=== PATIENT | male | born 1985 | race Two or more races ===

== ENCOUNTER 2024-09-23 16:25 | Inpatient (IN) | payer MEDICAID, OTHER ==
[~2024-09-23] VITALS: Ht 162.6 cm; Wt 81.2 kg
--- NOTE | 2024-09-23 16:46 | ED.PDOC ---
GI ASSESSMENT HPI Comments 38 y.o male presents to the ED for a chief complaint of abdominal pain associated with nausea and vomiting that started this morning. Patient describes pain as sharp, constant and rating a 10/10 on the pain scale. Patient does admit to heavily using alcohol yesterday. He denies any diarrhea, fever, chills, bleeding, dysuria. Chief Complaint: Abdominal Pain Time Seen by MD: 16:36 Reviewed Notes: Nurses Notes, Medications, Allergies Allergies: Coded Allergies: NO KNOWN ALLERGIES (Unverified , 09/23/24) Information Source: Patient Mode of Arrival: Ambulatory Timing: Hours Duration: Since onset Quality: Sharp Vomitus: Hard Stool: Normal Severity: Moderate Recent: Ingestion of ETOH Recent Hx of: None Pain Location: Diffuse Modifying Factors: Nothing Associated sign and symptoms: Nausea, Vomiting, Abdominal Pain Past Medical History PAST MEDICAL HISTORY: DM Surgical History (Other): left hand Family History Family History: Reviewed,noncontributory to illness Social History Smoker: Non-Smoker Alcohol: Occasionally Drugs: Denies Drug Use Lives In: Home Constitutional: denies: chills, diaphoresis, fatigue, fever, malaise, sweats, weakness, others EENTM: denies: blurred vision, double vision, ear bleeding, ear discharge, ear drainage, ear pain, ear ringing, eye pain, eye redness, hearing loss, mouth pain, mouth swelling, nasal discharge, nose bleeding, nose congestion, nose pain, photophobia, tearing, throat pain, throat swelling, voice changes, others Respiratory: denies: cough, hemoptysis, orthopnea, SOB at rest, shortness of breath, SOB with excertion, stridor, wheezing, others Cardiovascular: denies: chest pain, dizzy spells, diaphoresis, Dyspnea on exertion, edema, irregular heart beat, left arm pain, lightheadedness, palpitations, PND, syncope, others Gastrointestinal: reports: abdominal pain, nausea, vomiting; denies: abdomen distended, blood streaked bowels, constipated, diarrhea, dysphagia, difficulty swallowing, hematemesis, melena, poor appetite, poor fluid intake, rectal bleeding, rectal pain, others Genitourinary: denies: burning, dysuria, flank pain, frequency, hematuria, incontinence, penile discharge, penile sore, pain, testicle pain, testicle swelling, urgency, others Neurological: denies: dizziness, fainting, headache, left sided numbness, left sided weakness, numbness, paresthesia, pre-existing deficit, right sided numbne ss, right sided weakness, seizure, speech problems, tingling, tremors, weakness, others Musculoskeletal: denies: back pain, gout, joint pain, joint swelling, muscle pain, muscle stiffness, neck pain, others Integumetry: denies: bruises, change in color, change in hair/nails, dryness, laceration, lesions, lumps, rash, wounds, others Allergic/Immunocompromised: denies: Difficulty Healing, Frequent Infections, Hives, Itching, others Hematologic/Lymphatic: denies: anemia, blood clots, easy bleeding, easy bruising, swollen glands, others Endocrine: denies: excessive hunger, excessive sweating, excessive thirst, excessive urination, flushing, intolerance to cold, intolerance to heat, unexplained weight gain, unexplained weight loss, others Psychiatric: denies: anxiety, bipolar disorder, depression, hopeless, panic disorder, schizophrenia, sleepless, suicidal, others All Other Systems: Reviewed and Negative Physical Exam General Appearance: Moderate Distress HEENT: Normal ENT Inspection, Pharynx Normal, TMs Normal Neck: Full Range of Motion, Non-Tender, Normal, Normal Inspection Respiratory: Chest Non-Tender, Lungs Clear, No Accessory Muscle Use, No Respiratory Distress, Normal Breath Sounds Cardiovascular: No Edema, No JVD, No Murmur, No Gallop, Normal Peripheral Pulses, Regular Rate/Rhythm Breast Exam: Deferred Gastrointestinal: Diffuse, No Organomegaly, No Pulsatile Mass, Normal Bowel Sounds, Soft, Tenderness Genitalia: Deferred Pelvic: Deferred Rectal: Deferred Extremities: No calf tenderness, Normal capillary refill, Normal inspection, Normal range of motion, Non-tender, No pedal edema Musculoskeletal : Apperance: Normal Neurologic: Alert, value stream coach II-XII nml as Tested, No Motor Deficits, Normal Affect, Normal Mood, No Sensory Deficits Cerebellar Function: Normal Reflexes: Normal Skin: Dry, Normal Color, Warm Lymphatic: No Adenopathy Was a procedure done? Was a procedure done?: No GI differential Dx Differential Diagnosis: Esophagitis, Gastroenteritis, Inflammatory BD, Pancreatitis, Dehydration, Drug toxicity, Electrolyte Imbalance, Food Poisoning, Parasitic X-Ray, Labs, Meds, VS Vital Signs Date Time Temp Pulse Resp B/P (MAP) Pulse Ox O2 Delivery O2 Flow Rate FiO2 09/23/24 17:22 79 15 132/83 09/23/24 17:02 98.0 105 12 125/71 (89) 99 98.0 09/23/24 17:02 105 16 94 Room Air* 0 21 09/23/24 16:58 105 16 125/71 09/23/24 16:33 97.2 98 20 137/93 (108) 98 97.2 Lab Test 09/23/24 16:53 09/23/24 16:37 Range/Units White Blood Count 12.2 H 4.4-10.8 10^3/uL Red Blood Count 5.93 H 4.5-5.90 10^6/uL Hemoglobin 18.1 H 13.5-17.5 g/dL Hematocrit 51.3 41.0-53.0 % Mean Corpuscular Volume 86.4 80.0-100.0 fL Mean Corpuscular Hemoglobin 30.5 28.0-32.0 pg Mean Corpuscular Hemoglobin Concent 35.3 32.0-36.0 g/dL Red Cell Distribution Width 13.5 11.8-14.3 % Platelet Count 212 140-450 10^3/uL Mean Platelet Volume 9.2 6.9-10.8 fL Neutrophils (%) (Auto) 80.2 H 37.0-80.0 % Lymphocytes (%) (Auto) 12.5 10.0-50.0 % Monocytes (%) (Auto) 6.8 0.0-12.0 % Eosinophils (%) (Auto) 0.2 0.0-7.0 % Basophils (%) (Auto) 0.3 0.0-2.0 % Neutrophils # (Auto) 9.8 H 1.6-8.6 10 ^3/uL Lymphocytes # (Auto) 1.5 0.4-5.4 10 ^3/uL Monocytes # (Auto) 0.8 0-1.3 10 ^3/uL Eosinophils # (Auto) 0 0-0.8 10 ^3/uL Basophils # (Auto) 0 0-0.2 10 ^3/uL Nucleated Red Blood Cells 0.1 % Sodium Level 142 136-145 mmol/L Potassium Level 4.0 3.5-5.1 mmol/L Chloride Level 104 98-107 mmol/L Carbon Dioxide Level 27 20-31 mmol/L Anion Gap 11 5-15 Blood Urea Nitrogen 9 9-23 mg/dL Creatinine 1.00 0.700-1.30 mg/dL Glomerular Filtration Rate Calc 99 >90 mL/min BUN/Creatinine Ratio 9.0 L 10.0-20.0 Serum Glucose 197 H 74-106 mg/dL Calcium Level 10.2 8.7-10.4 mg/dL Total Bilirubin 0.7 0.2-1.0 mg/dL Aspartate Amino Transferase (AST) 22 13-40 U/L Alanine Aminotransferase (ALT) 35 7-40 U/L Alkaline Phosphatase 113 46-116 U/L Total Protein 8.8 H 5.7-8.2 g/dL Albumin 5.4 H 3.2-4.8 g/dL Lipase 29 12-53 U/L Plasma/Serum Blood Alcohol < 3.0 <10 mg/dL Urine Color Yellow Yellow Urine Clarity Clear Clear Urine pH 7.0 5.0-9.0 Urine Specific [place] 1.030 1.001-1.035 Urine Protein 2+ H Negative Urine Ketones Trace Negative Urine Blood Negative Negative /uL Urine Nitrite Negative Negative Urine Bilirubin Negative Negative Urine Urobilinogen 2 H Negative mg/dL Urine Leukocyte Esterase Negative Negative /uL Urine RBC 2 0 - 3 /hpf Urine Microscopic WBC 1 0-3 /HPF Urine Squamous Epithelial Cells None seen <5 /hpf Urine Bacteria None seen None Seen /hpf Urine Mucus Few None Seen Urine Glucose 2+ H Normal mg/dL Urine Opiates Screen Neg NEGATIVE Urine Fentanyl Screen Neg NEGATIVE Urine Barbiturates Screen Neg NEGATIVE Urine Phencyclidine Screen Neg NEGATIVE Urine Amphetamines Screen Neg NEGATIVE Urine Benzodiazepines Screen Neg NEGATIVE Urine Cocaine Screen Pos NEGATIVE Urine Cannabinoids Screen Pos NEGATIVE Current Medications Medications (Trade) Dose Ordered Sig/Ashely Route Start Time Stop Time Status Last Admin Ondansetron HCl (Zofran) 4 mg ONCE ONCE IV 09/23/24 16:45 09/23/24 16:46 DC 09/23/24 16:58 Sodium Chloride 1,000 ml @ 1,000 mls/hr Q1H ONCE IVB 09/23/24 16:45 09/23/24 17:44 DC 09/23/24 16:57 Morphine Sulfate 4 mg ONCE ONCE IV 09/23/24 16:45 09/23/24 16:46 DC 09/23/24 16:58 Procedure: CT CT AB PEL WO CON-NO ORAL OR IV 09/23/2024 05:06 PM IMPRESSION: 1. No acute intracranial abnormality. 2. Hepatic steatosis. 3. Subcentimeter hypodense lesions of the right kidney, too small to characterize in this unenhanced study. Recommend further evaluation by ultrasound nonemergent basis. The UDS is positive for cocaine and marijuana The urine is negative for any infection The patient was given morphine for the pain The patient was given 1 L bolus of normal saline At this time, the patient was given morphine for the pain The patient was given Zofran for the nausea The patient was still having persistent pain so the patient will be admitted Images Reviewed?: Images reviewed and evaluated by me Time of 1ST Reevaluation: 16:43 Reevaluation 1ST: Unchanged Patient Education/Counseling: Diagnosis, Treatment, Prognosis Family Education/Counseling: No Family Present Departure 1 Departure Time of Disposition: 19:01 Impression: Primary Impression: Intractable abdominal pain Additional Impression: Abdominal pain of unknown etiology Disposition: ADMITTED INPATIENT Admit to: Med Surg Condition: Fair Critical Care Note Critical Care Time?: No Stability Stability form required: Yes Unstable for transfer: ED Physician Assesment (Clinical assesment) I personally scribed for STEVE SINGH MD ([email or web address]) on 09/23/24 at 16:46. Electronically submitted by Shaila Mcmillan ([facility]). I personally scribed for STEVE SINGH MD ([email or web address]) on 09/23/24 at 18:42. Electronically submitted by Shaila Mcmillan ([facility]). STEVE SINGH MD Sep 23, 2024 16:46
[2024-09-23 16:53] LABS: Urine Bacteria None Seen /hpf (None Seen)
[2024-09-23] MEDS: SODIUM CHLORIDE 0.9% 1,000 ML IVB ONE (16:57)
[2024-09-23 16:58] LABS: Basophils # (auto) 0 10 ^3/uL (0-0.2); Eosinophils # (auto) 0 10 ^3/uL (0-0.8); Lymphocytes # (auto) 1.5 10 ^3/uL (0.4-5.4); Mean Corpuscular Volume 86.4 fL (80.0-100.0); Monocytes # (auto) 0.8 10 ^3/uL (0-1.3)
[2024-09-23] MEDS: ONDANSETRON HCL 4 MG/2 ML VIAL IV ONE (16:58)
[2024-09-23] MEDS: MORPHINE SULFATE 4 MG/ML SYR/VIAL IV ONE (16:58)
[2024-09-23 16:59] LABS: Urine Blood Negative /uL (Negative); Urine Clarity Clear (Clear); Urine Color Yellow (Yellow); Urine Mucus FEW (None Seen); Urine Protein, UAD 2+ (Negative); Urine Squamous Epithelial Cell None Seen /hpf (<5); Urine Urobilinogen 2 mg/dL (Negative); Urine WBC 1 /HPF (0-3)
[2024-09-23 17:00] LABS: Basophils % (auto) 0.3 % (0.0-2.0); Eosinophils % (auto) 0.2 % (0.0-7.0); Hematocrit 51.3 % (41.0-53.0); Hemoglobin 18.1 g/dL (13.5-17.5); Lymphocytes % (auto) 12.5 % (10.0-50.0); Mean Corpuscular Hemoglobin 30.5 pg (28.0-32.0); Mean Corpuscular Hgb Conc. 35.3 g/dL (32.0-36.0); Monocytes % (auto) 6.8 % (0.0-12.0); Neutrophils # (auto) 9.8 10 ^3/uL (1.6-8.6); Neutrophils % (auto) 80.2 % (37.0-80.0); Nucleated Red Blood Cells % 0.1 %; Platelet Count (auto) 212 10^3/uL (140-450); Red Blood Cells 5.93 10^6/uL (4.5-5.90); Red Cell Distribution Width 13.5 % (11.8-14.3); White Blood Cell 12.2 10^3/uL (4.4-10.8)
[2024-09-23 17:02] VITALS: PULSE 105; RESP 16; O2SAT 94
[2024-09-23 17:12] LABS: Cannabinoid Screen, Urine Pos (NEGATIVE)
[2024-09-23 17:14] LABS: Alanine Aminotransferase 35 U/L (7-40); Alkaline Phosphatase 113 U/L (46-116); Anion Gap 11 (5-15); Aspartate Aminotransferase 22 U/L (13-40); Calcium 10.2 mg/dL (8.7-10.4); Carbon Dioxide 27 mmol/L (20-31); Chloride 104 mmol/L (98-107); Sodium 142 mmol/L (136-145)
[2024-09-23 17:15] LABS: Bilirubin, Total 0.7 mg/dL (0.2-1.0)
[2024-09-23 17:18] LABS: Amphetamine Screen, Urine Neg (NEGATIVE); Barbiturate Scree,Urine Neg (NEGATIVE); Benzodiazephine Screen, Urine Neg (NEGATIVE); Cocaine Screen, Urine Pos (NEGATIVE); Opiate Scree,Urine Neg (NEGATIVE); Phencyclidine Screen, Urine Neg (NEGATIVE)
[2024-09-23 17:19] LABS: Albumin 5.4 g/dL (3.2-4.8); Blood Alcohol < 3.0 mg/dL (<10); Blood Urea Nitrogen 9 mg/dL (9-23); Glucose 197 mg/dL (74-106); Total Protein 8.8 g/dL (5.7-8.2)
[2024-09-23 17:26] LABS: Lipase 29 U/L (12-53)
--- NOTE | 2024-09-23 17:59 | DVH ---
Procedure: CT CT AB PEL WO CON-NO ORAL OR IV 09/23/2024 05:06 PM Indication: pain Comparison Study: None Technique: Axial images were obtained and reformatted in coronal and sagittal planes. All CT scans at this medical facility are performed using dose modulation techniques as appropriate to a performed e xam including the following: Automated exposure control was utilized; adjustment of the MA and/or KV according to patient size; and use of iterative reconstruction technique. CT Dose: CTDI volume is 9.3 6 mGy. Dose-length product is 501.4 mGy*cm FINDINGS: Lower Chest: Unremarkable. Hepatobiliary: Hepatic steatosis. Spleen: Unremarkable. Pancreas: Unremarkable. Adrenal Glands: Unremarkable. tract: The kidneys are normal in size bilaterally without hydronephrosis or nephrolithiasis. Subce ntimeter hypodense lesion noted in the upper pole, medial cortex of the right kidney, too small to ch aracterize in this unenhanced study but probably a cyst. A subcentimeter hypodense lesion noted in th e lateral cortex of the lower pole of the right kidney. The urinary bladder is unremarkable. GI tract: The stomach is grossly normal in appearance. No evidence of small bowel obstruction. The la rge bowel is unremarkable. The appendix is normal. Lymphatics: No mesenteric, retroperitoneal or periportal lymphadenopathy. Vasculature: The abdominal aorta is normal in caliber. Pelvic Organs: Unremarkable Bones/soft tissues: No acute abnormality. Other: None. IMPRESSION: 1. No acute intracranial abnormality. 2. Hepatic steatosis. 3. Subcentimeter hypodense lesions of the right kidney, too small to characterize in this unenhanced study. Recommend further evaluation by ultrasound nonemergent basis.
[2024-09-23] MEDS ORDERED: MORPHINE SULFATE INJ 2 MG/ml SYRG IV PRN (21:30)
[2024-09-23] MEDS ORDERED: NITROGLYCERIN 0.4 MG SL TAB SL PRN (21:30)
[2024-09-23 23:05] VITALS: PULSE 99; RESP 18; O2SAT 96
[2024-09-24] VITALS (9 sets, daily range): BP systolic 111–128; BP diastolic 70–87; PULSE 18–97; RESP 16–96; TEMP 87–98.2; O2SAT 95–98
[2024-09-24] MEDS ORDERED: METF500S3 PO (01:38)
[2024-09-24] MEDS ORDERED: DEXTROSE (50%) 50ML SYRG IV PRN (02:00)
[2024-09-24] MEDS ORDERED: ONDANSETRON HCL 4 MG/2 ML VIAL IV PRN (02:00)
[2024-09-24 02:06] LABS: Triglycerides 90 mg/dL (< 150)
[2024-09-24 02:08] LABS: Cholesterol 198 mg/dL (< 200); HDL Cholesterol 46 mg/dL (40-59)
--- NOTE | 2024-09-24 02:19 | DVHHPRES ---
History of Present Illness Resident Creating Document: VEL MALDONADO RESIDENT History of Present Illness Mr. Kleber Almendarez, a 38-year-old primarily Indonesian-speaking male presented to the emergency department with sharp, constant abdominal pain rated 10/10, accompanied by nausea and vomiting that began this morning. He admitted to heavy alcohol use the previous day but denied diarrhea, fever, chills, bleeding, and dysuria. He arrived ambulatory and was seen by the MD at 16:36. The patient has no known allergies, and his pain is diffuse with no modifying factors. His stool is normal, denies any diarrhea sick contact, and his vomitus is form nonbloody non biliary. Patient is accompanied by collateral history was taken with the patient's permission. Patient is admitted with full code for further inpatient management. Endocrine: Diabetes Past Surgical History Left hand surgical correction, status post trauma. Family History Noncontributory, obesity, hypertension, diabetes runs in first-degree relatives. Smoke: No Occupation: Unemployed ALCOHOL: occassional (Binge drinking, last drink day before admission.) Drugs: Other (Patient denies any use of recreational substance but UDS reveals otherwise.) Lives: with Family (In home.) Domestic Violence: Neg Review of Systems Constitutional: Yes: Malaise; No: Fever, Chills, Sweats, Weakness, Other Eyes: No: Pain, Vision change, Conjunctivae inflammation, Eyelid inflammation, Other, Redness ENT: No: Ear pain, Ear discharge, Nose pain, Nose discharge, Nose congestion, Mouth pain, Mouth swelling, Throat pain, Throat swelling, Other Respiratory: No: Cough, Dry, Shortness of breath, SOB with excertion, Wheezing, Hemoptysis, Pleuritic Pain, Sputum, Wheezing, Other Cardiovascular: No: Chest Pain, Palpitations, Orthopnea, Paroxysmal Noc. Dyspnea, Edema, Lt Headedness, Other Gastrointestinal: Nausea, Vomiting, Abdominal Pain; No: Diarrhea, Constipation, Melena, Hematochezia Genitourinary: No Dysuria, No Frequency, No Incontinence, No Hematuria, No Retention, No Other Musculoskeletal: No: other, neck pain, shoulder pain, arm pain, back pain, hand pain, leg pain, foot pain Skin: No: Rash, Lesions, Jaundice, Bruising, Other Neurological: No: Weakness, Numbness, Incoordination, Change in speech, Confusion, Seizures, Other Allergies: Coded Allergies: NO KNOWN ALLERGIES (Unverified , 09/23/24) Medications Current Medications Medications Dose Ordered Sig/Ashely Route Start Time Stop Time Status Last Admin Dose Admin Nitroglycerin 0.4 mg Q5MINP PRN SL 09/23/24 21:30 Morphine Sulfate 2 mg Q30M PRN IV 09/23/24 21:30 Ceftriaxone Sodium 50 ml @ 100 mls/hr DAILY@09 IV 09/25/24 09:00 Metronidazole 100 ml @ 100 mls/hr Q8HR IV 09/24/24 14:00 Ondansetron HCl 4 mg Q6HPRN PRN IV 09/24/24 02:00 Pantoprazole Sodium 40 mg DAILY IV 09/25/24 10:00 Exam Vital Signs Vital Signs Date Time Temp Pulse Resp B/P (MAP) Pulse Ox O2 Delivery O2 Flow Rate FiO2 09/24/24 01:00 97.6 97 18 122/71 (88) 97 97.6 09/23/24 23:05 Room Air* 0 21 General Appearance: Alert, Oriented X3, Cooperative, mild distress, Other (Mild restlessness, agitation, irritable) HEENT: Atraumatic, PERRLA, EOMI, Other (Dry mucous membrane) Respiratory: Clear to auscultation, Normal air movement, Other (Patient in room air saturating well.) Cardiovascular: Regular rate, Normal S1, Normal S2, No murmurs, Gallops, Rubs Abdominal: Normal bowel sounds, Soft, No masses (No abdominal bruit heard), Other (Rapid bowel transit, Right LQ local tenderness, no rebound tenderness, no Rovsing/McBurney's/Kate's sign, b/l CVA angle tenderness negative. Distended, tympanic. No surgical abdomen signs positive.) Extremities: No clubbing, No cyanosis, No edema, Normal pulses, No tenderness/swelling Skin: No rashes, No breakdown Neuro: Normal gait, Normal speech, Strength at 5/5 X4 ext, Normal tone, Sensation intact, Cranial nerves 3-12 NL, Reflexes 2+, Other (No focal neuro deficits) Psych/Mental Status: Other (Mildly agitated/irritable, mild distressed,) Labs/Xrays Labs Test 09/24/24 01:23 09/23/24 23:53 09/23/24 16:53 09/23/24 16:37 Range/Units Troponin I High Sensitivity < 3 L </=54 ng/L D-Dimer, Quantitative 0.23 0.0-0.49 mg/L FEU White Blood Count 12.2 H 4.4-10.8 10^3/uL Red Blood Count 5.93 H 4.5-5.90 10^6/uL Hemoglobin 18.1 H 13.5-17.5 g/dL Hematocrit 51.3 41.0-53.0 % Mean Corpuscular Volume 86.4 80.0-100.0 fL Mean Corpuscular Hemoglobin 30.5 28.0-32.0 pg Mean Corpuscular Hemoglobin Concent 35.3 32.0-36.0 g/dL Red Cell Distribution Width 13.5 11.8-14.3 % Platelet Count 212 140-450 10^3/uL Mean Platelet Volume 9.2 6.9-10.8 fL Neutrophils (%) (Auto) 80.2 H 37.0-80.0 % Lymphocytes (%) (Auto) 12.5 10.0-50.0 % Monocytes (%) (Auto) 6.8 0.0-12.0 % Eosinophils (%) (Auto) 0.2 0.0-7.0 % Basophils (%) (Auto) 0.3 0.0-2.0 % Neutrophils # (Auto) 9.8 H 1.6-8.6 10 ^3/uL Lymphocytes # (Auto) 1.5 0.4-5.4 10 ^3/uL Monocytes # (Auto) 0.8 0-1.3 10 ^3/uL Eosinophils # (Auto) 0 0-0.8 10 ^3/uL Basophils # (Auto) 0 0-0.2 10 ^3/uL Nucleated Red Blood Cells 0.1 % Sodium Level 142 136-145 mmol/L Potassium Level 4.0 3.5-5.1 mmol/L Chloride Level 104 98-107 mmol/L Carbon Dioxide Level 27 20-31 mmol/L Anion Gap 11 5-15 Blood Urea Nitrogen 9 9-23 mg/dL Creatinine 1.00 0.700-1.30 mg/dL Glomerular Filtration Rate Calc 99 >90 mL/min BUN/Creatinine Ratio 9.0 L 10.0-20.0 Serum Glucose 197 H 74-106 mg/dL Calcium Level 10.2 8.7-10.4 mg/dL Total Bilirubin 0.7 0.2-1.0 mg/dL Aspartate Amino Transferase (AST) 22 13-40 U/L Alanine Aminotransferase (ALT) 35 7-40 U/L Alkaline Phosphatase 113 46-116 U/L Total Protein 8.8 H 5.7-8.2 g/dL Albumin 5.4 H 3.2-4.8 g/dL Lipase 29 12-53 U/L Plasma/Serum Blood Alcohol < 3.0 <10 mg/dL Urine Color Yellow Yellow Urine Clarity Clear Clear Urine pH 7.0 5.0-9.0 Urine Specific [place] 1.030 1.001-1.035 Urine Protein 2+ H Negative Urine Ketones Trace Negative Urine Blood Negative Negative /uL Urine Nitrite Negative Negative Urine Bilirubin Negative Negative Urine Urobilinogen 2 H Negative mg/dL Urine Leukocyte Esterase Negative Negative /uL Urine RBC 2 0 - 3 /hpf Urine Microscopic WBC 1 0-3 /HPF Urine Squamous Epithelial Cells None seen <5 /hpf Urine Bacteria None seen None Seen /hpf Urine Mucus Few None Seen Urine Glucose 2+ H Normal mg/dL Urine Opiates Screen Neg NEGATIVE Urine Fentanyl Screen Neg NEGATIVE Urine Barbiturates Screen Neg NEGATIVE Urine Phencyclidine Screen Neg NEGATIVE Urine Amphetamines Screen Neg NEGATIVE Urine Benzodiazepines Screen Neg NEGATIVE Urine Cocaine Screen Pos NEGATIVE Urine Cannabinoids Screen Pos NEGATIVE Assessment/Plan Assessment/Plan #Acute abdominal pain: Acute onset of RLQ, gradual onset, sharp, localized, nonradiating, eventually cramping abdominal pain intermittent,, denies previous history of abdominal surgery/any previous pain. CT reveals Subcentimeter hypodense lesions of the right kidney, may or may not be relevant. Outpatient follow up. Pain management, NPO, IV fluid, CMP unremarkable, lipase negative. otherwise CT unremarkable. Advanced diet and when tolerated. Surgical abdomen ruled out clinically., if symptoms worsen or with high suspicion of complication consider General surgery consult. As needed iv Zofran. #Possible gastroenteritis: Bowel rest /NPO for now, IV fluid replenishment, could be viral but empiric coverage due to signs of SIRS. #Possibility of cyclic vomiting syndrome: Abdominal pain, nausea, but no significant vomiting. In the background of positive cannabinoids, not entirely can be ruled out clinically. #Possible Sepsis, source unknown: Meets SIRS criteria with elevated WBC, tachypnea and tachy cardia at admission. Extensive workup pending, tachycardia, in 105, sinus, occasional tachypnea in 24/per minute, outside patient has been found with elevated blood pressure, in-hospital eyes blood pressure noted is 130/90s, breathing comfortably in the room air. Urinalysis unremarkable, upright CXR pending. Alternatively could be stress related due to cocaine intoxication. Lactate pending. Vague symptoms but if infectious than most likely intra-abdominal infection so we will cover with empiric IV ceftriaxone and Flagyl. #Acute cocaine intoxication: Blood pressure improved, CXR, D-dimer, EKG and tropes are pending. Detrimental health effect of cocaine counseled at bedside. Continue IV fluid, as needed IV Ativan for agitation. AVOID BETA BLOCKERS to avoid unopposed action of alpha receptors. Continue telemetry. #Possible polycythemia: Presented with 18.1 of hemoglobin, platelets WNL, single cell line elevated, could be due to dehydration/secondary causes including smoke inhalation. Continue IV fluid, rule out secondary causes and hyperviscosity syndrome, although less likely! #Acute cannabinoid intoxication: Bilateral ocular hyperemia, high covering for oral diet, irritability, slow reaction. Detrimental health effect of cannabinoids counseled at bedside. #History of polysubstance abuse: Bedside counseling done, underlying psychiatric evaluation for anxiety/depression to address. Denies any suicidal or homicidal ideation. #Binge drinking/alcohol abuse, moderate: Usually drinks beer, Last alcohol intake 1 day prior to the admission, negative for Audit-c screening, if shows signs of agitation, alcohol withdrawal we will consider starting the patient on Ar-CIWA protocol with as needed Ativan. #Hyperproteinemia: Corresponding proteinuria, Total protein 8.8, albumin 5.4, could be due to dehydration, stress, repeat CMP in the morning, if the gap remains high, consider workup for paraproteinemia. #Hepatic steatosis/fatty liver: Lifestyle modification, avoid alcohol, weight loss. Long-term detrimental effect offered liver discussed with bedside. #Obesity grade 1: Weight loss counseling done, healthy diet and AHA/ACC recommended preventative heart counseling provided at bedside. Noted central obesity, rule out type 2 diabetes mellitus, check lipid panel. #Essential hypertension: Can not be ruled out, in the presence of cocaine, we will we will monitor the patient closely, check bilateral arm blood pressure difference, ambulatory blood pressure monitoring, 2 g salt restriction and car diac diet to continue. High-risk of metabolic syndrome. #Known History of type 2 diabetes mellitus: Patient is on metformin 500 mg daily, questionable compliance, check HbA1c. Continue mild SSI. #Medical nonadherence, chronic: Noted by , poor medical follow up. adviced to establish care and follow up closely with primary care team. Diet: NPO given acute abdominal pain, recurrent vomiting and nausea. DVT prophylaxis: SCD for now, yet to rule out aortic dissection. GI prophylaxis: IV PPI daily to continue Code status: Full code, discussed with the bedside with the patient and in the presence of police worker. Patient is agreeable to the hospitalization and medical management. Total care time including chart review, physical exam, medical planning and communication needed total [address] Ashton Plan discussed with: Patient, Spouse, Other (primary team. RN) My Orders Orders - VEL MALDONADO RESIDENT Procedure Category Date Status Time Admit ADMIT 09/23/24 Transmitted 21:16 Nitroglycerin PHA 09/23/24 In Process Sublingual (Ntrostat 21:30 Morphine Sulfate PHA 09/23/24 In Process Injection 21:30 Oxygen By Nasal RT 09/23/24 Transmitted Cannula 21:16 Stat Ekg For Chest NARDA 09/23/24 In Process Pain 21:16 Notify Md Of Changes [facility] 09/23/24 In Process From Base 21:16 Head Orthopedic Team Physician For [facility] 09/23/24 In Process 24 Hours 21:16 Emergency Dysrhythmia [facility] 09/23/24 In Process Protocol 21:16 Rhythm Strips Once [facility] 09/23/24 In Process Every Shift 21:16 Troponin-I Hs LAB 09/24/24 Logged 02:24 Electrocardigram EKG 09/23/24 Logged 23:24 Electrocardigram EKG 09/24/24 Logged 00:24 Electrocardigram EKG 09/24/24 Logged 02:24 Chest Xray 1 View XY 09/24/24 Logged 01:20 Lactic Acid W/ Reflex LAB 09/24/24 Logged Order 01:20 Hemoglobin A1c LAB 09/24/24 Logged 01:20 Lipid Panel LAB 09/24/24 In Process 01:20 Complete Blood Count LAB 09/24/24 Logged 04:00 Comprehensive LAB 09/24/24 Logged Metabolic Panel 04:00 Blood Culture BERT 09/24/24 Logged 01:41 Respiratory Culture BERT 09/24/24 Logged W/ Gs 01:41 Covid19 Antigen Shy LAB 09/24/24 Logged Rapid Influenza A&B LAB 09/24/24 Logged 01:41 Ceftriaxone 1gm/50ml PHA 09/24/24 In Process D5w (Rocephin) 02:00 Metronidazole PHA 09/24/24 In Process 500mg/100ml (Flagyl 02:00 Metronidazole PHA 09/24/24 In Process 500mg/100ml (Flagyl 14:00 Ceftriaxone 1gm/50ml PHA 09/25/24 In Process D5w (Rocephin) 09:00 Osmolality, Serum LAB 09/24/24 Logged 01:49 Urine Creatinine LAB 09/24/24 Logged 01:49 Urine Potassium LAB 09/24/24 Logged 01:49 Urine Sodium LAB 09/24/24 Logged 01:49 Urine Protein LAB 09/24/24 Logged 01:49 Ondansetron Hcl PHA 09/24/24 In Process (Zofran) 02:00 Pantoprazole PHA 09/25/24 In Process (Protonix) 10:00 Glucose Blood PHA 09/24/24 Logged (Accu-Chek Comfort 06:00 Insulin R (Human) PHA 09/24/24 Logged (Insulin R) 06:00 Dextrose 50% Syringe PHA 09/24/24 Logged 02:00 Date of Service: Sep 24, 2024 Billing Provider: MELBA ASHTON MD, SUMAN RESIDENT Sep 24, 2024 02:18
[2024-09-24 02:30] LABS: LDL Cholesterol 146 mg/dL (< 100)
[2024-09-24] MEDS: metroNIDAZOLE 500MG/100ML 100 ML IV ONE (03:14)
[2024-09-24] MEDS: PANTOPRAZOLE 40 MG/10 ML VIAL INJ IV ONE (03:14)
[2024-09-24 03:40] LABS: Basophils # (auto) 0 10 ^3/uL (0-0.2); Basophils % (auto) 0.5 % (0.0-2.0); Eosinophils # (auto) 0 10 ^3/uL (0-0.8); Eosinophils % (auto) 0.2 % (0.0-7.0); Hematocrit 45.3 % (41.0-53.0); Hemoglobin 15.9 g/dL (13.5-17.5); Lymphocytes # (auto) 2.5 10 ^3/uL (0.4-5.4); Lymphocytes % (auto) 26.3 % (10.0-50.0); Mean Corpuscular Hemoglobin 30.1 pg (28.0-32.0); Monocytes % (auto) 10.2 % (0.0-12.0); Neutrophils % (auto) 62.8 % (37.0-80.0); Nucleated Red Blood Cells % 0.2 %; Platelet Count (auto) 185 10^3/uL (140-450); Red Blood Cells 5.27 10^6/uL (4.5-5.90); Red Cell Distribution Width 13.6 % (11.8-14.3); White Blood Cell 9.6 10^3/uL (4.4-10.8)
[2024-09-24 03:58] LABS: Alkaline Phosphatase 79 U/L (46-116)
[2024-09-24 03:59] LABS: Alanine Aminotransferase 25 U/L (7-40); Albumin 4.5 g/dL (3.2-4.8); Anion Gap 10 (5-15); Aspartate Aminotransferase 15 U/L (13-40); BUN/Creatinine Ratio 10.5 (10.0-20.0); Bilirubin, Total 0.8 mg/dL (0.2-1.0); Calcium 9.7 mg/dL (8.7-10.4); Carbon Dioxide 26 mmol/L (20-31); Chloride 105 mmol/L (98-107); Potassium 3.7 mmol/L (3.5-5.1); Sodium 141 mmol/L (136-145); Total Protein 7.5 g/dL (5.7-8.2)
[2024-09-24 04:19] LABS: Blood Urea Nitrogen 9 mg/dL (9-23); Glucose 137 mg/dL (74-106)
[2024-09-24] MEDS: cefTRIAXone 1GM/50ML D5W 50 ML IV ONE (04:23)
[2024-09-24] MEDS: ACCU-CHEK COMFORT CURVE STRIP VI SCH (06:11)
[2024-09-24] MEDS: InsuLIN REG 1unit/0.01ml Soln (100units/ml) SC SCH (06:13)
--- NOTE | 2024-09-24 06:42 | DVH ---
EXAM: XR Chest, 1 View CLINICAL INDICATION: rule out chest pathology. TECHNIQUE: Frontal view of the chest. COMPARISON: None FINDINGS: LUNGS AND PLEURAL SPACES: Mild pulmonary congestion. No consolidation. No pneumothorax. HEART: Unremarkable. No cardiomegaly. MEDIASTINUM: Unremarkable. Normal mediastinal contour. BONES/JOINTS: Unremarkable. No acute fracture. OTHER FINDINGS: . IMPRESSION: Mild pulmonary congestion.
[2024-09-24] MEDS: metroNIDAZOLE 500MG/100ML 100 ML IV SCH (13:27)
--- NOTE | 2024-09-24 14:07 | DVHPNRES ---
Progress Note Date Seen: Sep 24, 2024 Resident Creating Document: VIV MC RESIDENT Has the PT tested + for MRSA If YES, has PT been informed?: No Medical Necessity Reason Pt with a Central, PICC or Fol: No Subjective Review of Systems 38-year-old male with a history of type 2 diabetes mellitus presenting with 1 day of generalized abdominal pain rated 10/10 in severity. He reports associated vomiting and a history of heavy alcohol use. Denies diarrhea, fever, chills, bleeding, or dysuria. Presented to the ED for evaluation due to persistent symptoms. No known PCP. Last alcohol use was on 09/21/2024 PMH: Type 2 diabetes mellitus PSH: Left hand surgery s/p trauma Meds: Metformin 500 mg daily Allergies: NKDA Social: : alcohol use (whiskey), substance use (cbd and cocaine) ROS (pertinent): Positive for vomiting. Denies fever, chills, diarrhea, GI bleeding, dysuria, or other systemic symptoms. Objective vital signs Vital Sign Date Time Temp Pulse Resp B/P (MAP) Pulse Ox O2 Delivery O2 Flow Rate FiO2 09/24/24 09:00 98.1 84 19 114/70 (85) 95 98.1 09/24/24 01:35 Room Air* 0 21 Total Intake and Output 09/23/24 09/23/24 09/24/24 14:59 22:59 06:59 Intake Total 1000 ml 0 ml Balance 1000 ml 0 ml medications Current Medications Medications Dose Ordered Sig/Ashely Route Start Time Stop Time Status Last Admin Dose Admin Nitroglycerin 0.4 mg Q5MINP PRN SL 09/23/24 21:30 Morphine Sulfate 2 mg Q30M PRN IV 09/23/24 21:30 Ceftriaxone Sodium 50 ml @ 100 mls/hr DAILY@09 IV 09/25/24 09:00 Metronidazole 100 ml @ 100 mls/hr Q8HR IV 09/24/24 14:00 09/24/24 13:27 100 MLS/HR Ondansetron HCl 4 mg Q6HPRN PRN IV 09/24/24 02:00 Pantoprazole Sodium 40 mg DAILY IV 09/25/24 10:00 Diagnostic Test (Pha) 1 strip Q6HR 09/24/24 06:00 09/24/24 12:00 1 STRIP Insulin Human Regular Q6HR SC 09/24/24 06:00 09/24/24 12:00 3 UNITS Dextrose 50 ml UD PRN IV 09/24/24 02:00 Examination Gen: NAD, alert, interactive HEENT: NC/AT, PERRL, EOMI, MMM Neck: Supple, no LAD Resp: Clear to auscultation bilaterally CV: RRR, no m/r/g Abd: Soft, non-distended, non-tender, normal bowel sounds Ext: Normal tone/ROM, 2+ pulses bilaterally Neuro: AOx3, CN II-XII grossly intact Skin: No rashes or lesions laboratory and microbiology Laboratory Tests 09/24/24 03:21 Test 09/24/24 03:21 Range/Units Serum Glucose 137 H 74-106 mg/dL Problem List/Assessment/Plan Problem List/Assessment/Plan #Acute intractable abdominal pain #Possible acute bacterial gastroenteritis #Possible hyperemesis syndrome due to CBD #Sepsis without OD #Cocaine and CBD use #Alcoholism #Hepatic steatosis #Dehydration #DM type 2 #subcentimeter lesion in right kidney Diabetic diet Ceftriaxone + Metronidazole ISS Protonix IV Zofran PRN Today the patient is stable, no new episodes of emesis, possible Dc tomorrow if diet is tolerated Case discussed with Dr Ashton Plan discussed with: Patient, Other (rn) VIV MC RESIDENT Sep 24, 2024 14:07
[2024-09-24 22:08] LABS: Rapid Influenza A Negative (Negative); Rapid Influenza B Negative (Negative)
[2024-09-24 22:09] LABS: COVID19 ANTIGEN SOFIA FIA NEGATIVE (NEGATIVE)
[2024-09-25 01:00] VITALS: BP 112/76; PULSE 104; RESP 15; TEMP 98; O2SAT 99
[2024-09-25 05:00] VITALS: BP 105/60; PULSE 54; RESP 15; TEMP 97.7; O2SAT 97
[2024-09-25 06:26] LABS: Basophils # (auto) 0 10 ^3/uL (0-0.2); Basophils % (auto) 0.8 % (0.0-2.0); Eosinophils # (auto) 0.1 10 ^3/uL (0-0.8); Eosinophils % (auto) 2.6 % (0.0-7.0); Hematocrit 42.6 % (41.0-53.0); Lymphocytes # (auto) 2.3 10 ^3/uL (0.4-5.4); Lymphocytes % (auto) 45.2 % (10.0-50.0); Mean Corpuscular Hemoglobin 30.4 pg (28.0-32.0); Mean Corpuscular Hgb Conc. 35.3 g/dL (32.0-36.0); Mean Corpuscular Volume 86.1 fL (80.0-100.0); Monocytes # (auto) 0.7 10 ^3/uL (0-1.3); Monocytes % (auto) 13.3 % (0.0-12.0); Neutrophils # (auto) 1.9 10 ^3/uL (1.6-8.6); Neutrophils % (auto) 38.1 % (37.0-80.0); Nucleated Red Blood Cells % 0.1 %; Platelet Count (auto) 162 10^3/uL (140-450); Red Blood Cells 4.94 10^6/uL (4.5-5.90); Red Cell Distribution Width 13.2 % (11.8-14.3); White Blood Cell 5.1 10^3/uL (4.4-10.8)
[2024-09-25 06:49] LABS: Alanine Aminotransferase 21 U/L (7-40); Anion Gap 9 (5-15); BUN/Creatinine Ratio 11.2 (10.0-20.0); Bilirubin, Total 0.6 mg/dL (0.2-1.0); Blood Urea Nitrogen 11 mg/dL (9-23); Calcium 9.4 mg/dL (8.7-10.4); Carbon Dioxide 27 mmol/L (20-31); Chloride 101 mmol/L (98-107); Sodium 137 mmol/L (136-145); Total Protein 6.7 g/dL (5.7-8.2)
[2024-09-25 06:52] LABS: Aspartate Aminotransferase 13 U/L (13-40); Glucose 253 mg/dL (74-106); Potassium 3.4 mmol/L (3.5-5.1)
[2024-09-25 07:14] LABS: Alkaline Phosphatase 76 U/L (46-116)
[2024-09-25 08:00] VITALS: PULSE 70; RESP 18; O2SAT 98
[2024-09-25 09:00] VITALS: BP 126/87; PULSE 70; RESP 18; TEMP 97.8; O2SAT 98
[2024-09-25] MEDS: cefTRIAXone 1GM/50ML D5W 50 ML IV SCH (09:09)
[2024-09-25] MEDS: PANTOPRAZOLE 40 MG/10 ML VIAL INJ IV SCH (09:09)
[2024-09-25] MEDS: POTASSIUM CHL 20 Meq TABLET PO ONE (10:50)
[2024-09-25] MEDS ORDERED: ACET-1882 PO (11:36)
[2024-09-25] MEDS ORDERED: PANT40TA2 PO (11:36)
[2024-09-25 13:09] VITALS: BP 126/87; PULSE 70; RESP 18; TEMP 97.8; O2SAT 98
--- NOTE | 2024-09-25 17:46 | DVHDSRES ---
Discharge Summary Date of Admission Resident Creating Document: VIV MC RESIDENT Sep 23, 2024 at 21:16 Date of Discharge: Sep 25, 2024 Admitting Diagnosis Acute intractable abdominal pain Labs/Diagnostic Data: Laboratory Results Test 09/25/24 12:05 09/25/24 05:35 09/24/24 21:30 09/24/24 03:21 POC Glucose 173 mg/dl (70-106) White Blood Count 5.1 10^3/uL (4.4-10.8) Red Blood Count 4.94 10^6/uL (4.5-5.90) Hemoglobin 15.0 g/dL (13.5-17.5) Hematocrit 42.6 % (41.0-53.0) Mean Corpuscular Volume 86.1 fL (80.0-100.0) Mean Corpuscular Hemoglobin 30.4 pg (28.0-32.0) Mean Corpuscular Hemoglobin Concent 35.3 g/dL (32.0-36.0) Red Cell Distribution Width 13.2 % (11.8-14.3) Platelet Count 162 10^3/uL (140-450) Mean Platelet Volume 9.6 fL (6.9-10.8) Neutrophils (%) (Auto) 38.1 % (37.0-80.0) Lymphocytes (%) (Auto) 45.2 % (10.0-50.0) Monocytes (%) (Auto) 13.3 % (0.0-12.0) Eosinophils (%) (Auto) 2.6 % (0.0-7.0) Basophils (%) (Auto) 0.8 % (0.0-2.0) Neutrophils # (Auto) 1.9 10 ^3/uL (1.6-8.6) Lymphocytes # (Auto) 2.3 10 ^3/uL (0.4-5.4) Monocytes # (Auto) 0.7 10 ^3/uL (0-1.3) Eosinophils # (Auto) 0.1 10 ^3/uL (0-0.8) Basophils # (Auto) 0 10 ^3/uL (0-0.2) Nucleated Red Blood Cells 0.1 % Sodium Level 137 mmol/L (136-145) Potassium Level 3.4 mmol/L (3.5-5.1) Chloride Level 101 mmol/L (98-107) Carbon Dioxide Level 27 mmol/L (20-31) Anion Gap 9 (5-15) Blood Urea Nitrogen 11 mg/dL (9-23) Creatinine 0.98 mg/dL (0.700-1.30) Glomerular Filtration Rate Calc 101 mL/min (>90) BUN/Creatinine Ratio 11.2 (10.0-20.0) Serum Glucose 253 mg/dL (74-106) Calcium Level 9.4 mg/dL (8.7-10.4) Total Bilirubin 0.6 mg/dL (0.2-1.0) Aspartate Amino Transferase (AST) 13 U/L (13-40) Alanine Aminotransferase (ALT) 21 U/L (7-40) Alkaline Phosphatase 76 U/L (46-116) Total Protein 6.7 g/dL (5.7-8.2) Albumin 4.0 g/dL (3.2-4.8) Influenza Type A Antigen Negative (Negative) Influenza Type B Antigen Negative (Negative) SARS-CoV-2 Antigen (Rapid) Negative (NEGATIVE) Hemoglobin A1c 9.4 % A1C (<5.7) Serum Osmolality 293 mOsm/kg (278-298) Lactic Acid Level 1.0 mmol/L (0.4-2.0) Troponin I High Sensitivity < 3 ng/L (</=54) Test 09/24/24 01:23 09/23/24 23:53 09/23/24 16:53 09/23/24 16:37 Triglycerides Level 90 mg/dL (< 150) Cholesterol Level 198 mg/dL (< 200) LDL Cholesterol 146 mg/dL (< 100) HDL Cholesterol 46 mg/dL (40-59) D-Dimer, Quantitative 0.23 mg/L FEU (0.0-0.49) Lipase 29 U/L (12-53) Plasma/Serum Blood Alcohol < 3.0 mg/dL (<10) Urine Color Yellow (Yellow) Urine Clarity Clear (Clear) Urine pH 7.0 (5.0-9.0) Urine Specific [place] 1.030 (1.001-1.035) Urine Protein 2+ (Negative) Urine Ketones Trace (Negative) Urine Blood Negative /uL (Negative) Urine Nitrite Negative (Negative) Urine Bilirubin Negative (Negative) Urine Urobilinogen 2 mg/dL (Negative) Urine Leukocyte Esterase Negative /uL (Negative) Urine RBC 2 /hpf (0 - 3) Urine Microscopic WBC 1 /HPF (0-3) Urine Squamous Epithelial Cells None seen /hpf (<5) Urine Bacteria None seen /hpf (None Seen) Urine Mucus Few (None Seen) Urine Glucose 2+ mg/dL (Normal) Urine Opiates Screen Neg (NEGATIVE) Urine Fentanyl Screen Neg (NEGATIVE) Urine Barbiturates Screen Neg (NEGATIVE) Urine Phencyclidine Screen Neg (NEGATIVE) Urine Amphetamines Screen Neg (NEGATIVE) Urine Benzodiazepines Screen Neg (NEGATIVE) Urine Cocaine Screen Pos (NEGATIVE) Urine Cannabinoids Screen Pos (NEGATIVE) Other Laboratory Tests 09/25/24 05:35 Brief Hx & Hospital Course: 38-year-old male with history of type 2 diabetes mellitus and heavy alcohol use presented with 1 day of generalized abdominal pain (10/10 severity) associated with vomiting. Denied diarrhea, fever, chills, GI bleeding, or dysuria. Reported recent use of alcohol (whiskey), CBD, and cocaine. No known PCP. Presented to the ED for evaluation due to persistent symptoms. Hospital Course: Patient was admitted for management of abdominal pain and emesis. Initial labs and imaging suggested hepatic steatosis and a subcentimeter lesion in the right kidney. He was started on ceftriaxone and metronidazole for empiric coverage of possible infectious gastroenteritis. Also received supportive care with IV fluids, Zofran PRN, and protonix. Patients symptoms improved with no further episodes of vomiting during hospitalization. Gen: NAD, alert, interactive HEENT: NC/AT, PERRL, EOMI, MMM Neck: Supple, no LAD Resp: Clear to auscultation bilaterally CV: RRR, no m/r/g Abd: Soft, non-distended, non-tender, normal bowel sounds Ext: Normal tone/ROM, 2+ pulses bilaterally Neuro: AOx3, CN II-XII grossly intact Skin: No rashes or lesions Case discussed with Dr Ashton Operations or Procedures FINDINGS: Lower Chest: Unremarkable. Hepatobiliary: Hepatic steatosis. Spleen: Unremarkable. Pancreas: Unremarkable. Adrenal Glands: Unremarkable. tract: The kidneys are normal in size bilaterally without hydronephrosis or nephrolithiasis. Subcentimeter hypodense lesion noted in the upper pole, medial cortex of the right kidney, too small to characterize in this unenhanced study but probably a cyst. A subcentimeter hypodense lesion noted in the lateral cortex of the lower pole of the right kidney. The urinary bladder is unremarkable. GI tract: The stomach is grossly normal in appearance. No evidence of small bowel obstruction. The large bowel is unremarkable. The appendix is normal. Lymphatics: No mesenteric, retroperitoneal or periportal lymphadenopathy. Vasculature: The abdominal aorta is normal in caliber. Pelvic Organs: Unremarkable Bones/soft tissues: No acute abnormality. Other: None. IMPRESSION: 1. No acute intracranial abnormality. 2. Hepatic steatosis. 3. Subcentimeter hypodense lesions of the right kidney, too small to characterize in this unenhanced study. Recommend further evaluation by ultrasound nonemergent basis. Condition at Discharge: Stable Final Diagnosis/Problems List #Acute intractable abdominal pain #Possible acute bacterial gastroenteritis #Possible hyperemesis syndrome due to CBD #Sepsis without OD #Cocaine and CBD use #Alcoholism #Hepatic steatosis #Dehydration #DM type 2 #subcentimeter lesion in right kidney Discharge Disposition: Home Discharge Instruct/Medications Diet: Consistent carbohydrate, Cardiac 2g Na,low cholest Diet comment: soft diet Activity: Light activity Follow Up/Referral: dc clinic Medications: see prescription Discharge Statement: "Patient was advised to return to the ER or call 911 if any headaches, dizziness, shortness of breath, chest pain, abdominal pain, bleeding, fevers, or worsening of medical condition. Patient was counseled about treatment plan, medications, possible side effects, patientverbalized understanding. All questions were answered to the best of my ability. This discharge took greater then 30 minutes in planning, reviewing documentation, counseling the patient, and discussing with other team members." ASSESSMENT ASSESSMENT Assessment acute gastroenteritis VIV [facility] RESIDENT Sep 25, 2024 17:46
== END 2024-09-25 15:02 | disposition home or self-care (01) | DRG 248 ==
LOC: ER 16:25 → OVERFLOW 21:16 → TELE-WESTW 09-24 00:55
PROVIDERS: ADMIT Student in an Organized Health Care Education/Training Program; ATTEND Student in an Organized Health Care Education/Training Program
DX: A04.9 Bacterial intestinal infection, unspecified (principal); K76.0 Fatty (change of) liver, not elsewhere classified; E11.9 Type 2 diabetes mellitus without complications; Z20.822 Contact with and (suspected) exposure to COVID-19; E66.9 Obesity, unspecified; E86.0 Dehydration; F12.90 Cannabis use, unspecified, uncomplicated; N28.9 Disorder of kidney and ureter, unspecified; R11.2 Nausea with vomiting, unspecified
CPT/HCPCS: 36415; 71045; 74176; 80053; 80061; 80307; 80320; 81001; 82962; 83036; 83605; 83690; 83930; 84484; 85025; 85379; 87040; 87426; 87804; 96361; 96374; 96375; G0378; J1815; J2405; J2470; J3490